=== PATIENT | male | born 1945 | race Caucasian/White ===

== ENCOUNTER 2022-09-07 03:25 | Emergency (ER) | payer MEDICARE, SELFPAY ==
--- NOTE | 2022-09-07 05:08 | PC.NURSE ---
Computers into downtime during patient's stay in ER. See paper charting for ER stay.
--- NOTE | 2022-09-07 05:18 | ED.MALEGU ---
HPI - Male Genitourinary General Stated complaint: Urinary retention Time Seen by Provider: 09/07/22 05:06 Source: patient Mode of arrival: ambulatory Limitations: no limitations History of Present Illness HPI Narrative: Patient is a 77-year-old male with a history of atrial fibrillation, chronic anticoagulation, hypertension, BPH, presenting to the emergency department for evaluation of difficulty with urination. Patient reports intermittent dribbling stream and has been unable to urinate completely over the past 12 hours. Patient states he has been drinking increased amount of water to see if that would increase his ability to urinate but now he reports discomfort and urge to pee. Patient reports suprapubic discomfort without significant distention. He denies flank pain. No fever, chills, nausea or vomiting. No history of this occurring in the past. Denies recent medication changes or anesthesia. Denies dysuria or hematuria. Review of Systems Review of Systems: CONSTITUTIONAL: Denies fever CARDIOVASCULAR: Denies chest pain RESPIRATORY: Denies cough or dyspnea. GASTROINTESTINAL: Denies abdominal pain, reports urinary retention, reports suprapubic pain SKIN: Denies rash MUSCULOSKELETAL: Denies back pain NEUROLOGIC: Denies headache [facility] Past Medical History Medical History (Updated 09/07/22 @ 05:23 by Lila Tapia MD) Atrial fibrillation Benign prostatic hyperplasia Social History Social History (Updated 09/07/22 @ 05:21 by Lila Tapia MD) Smoking status: Never smoker Alcohol intake: never Substance use: never Gender identity (if verbalized by the patient): Male Exam Narrative: GENERAL: Awake, alert, conversant HEAD: Normocephalic, atraumatic. EYES: PERRLA and EOMI. ENT: Nares clear, no rhinorrhea or epistaxis. Mucous membranes moist. NECK: Supple. CHEST: No respiratory distress, breathing even and non labored HEART: Regular rate, sinus rhythm ABDOMEN:Non distended, mild suprapubic tenderness, no rebound, rigidity or guarding EXTREMITIES: Normal range of motion. No edema. SKIN: Warm, dry, no rash. NEURO:No focal deficits. Alert and oriented x3 MDM - Male Genitourinary MDM Narrative Medical decision making narrative: Patient presenting for evaluation of urinary retention. At the time of assessment, ABCs are intact and vital signs are stable. Patient with only mild suprapubic tenderness without peritoneal signs. IV access obtained and labs are drawn. A bladder scan was obtained and patient had greater than 500 mL present in his bladder. A Valentin catheter was placed for urinary retention. Patient without leukocytosis or acute kidney injury. Urinalysis is not consistent with UTI. Patient sounds if he has a history of BPH and now exacerbation. Plan for chronic indwelling Valentin catheter and urology follow-up for voiding trial. Patient felt improved at the time of reassessment, was discharged home in stable condition. Discharge paperwork was provided to patient during EMR downtime. Differential Diagnosis Differential diagnosis: Likely urinary tract infection, prostatitis and acute retention of urine Lab Data 09/07/22 04:02 09/07/22 04:02 Labs: Lab Results 09/07/22 09/07/22 09/07/22 Range/Units 04:02 04:02 04:02 WBC Pending RBC Pending Hgb Pending Hct Pending MCV Pending MCH Pending MCHC Pending RDW Pending Plt Count Pending MPV Pending Immature Gran % (Auto) Pending Neut % (Auto) Pending Lymph % (Auto) Pending [place] % (Auto) Pending Eos % (Auto) Pending Baso % (Auto) Pending Lymph # (Auto) Pending [place] # (Auto) Pending Eos # (Auto) Pending Baso # (Auto) Pending Abs Immat Gran (auto) Pending Absolute Neuts (auto) Pending Absolute Nucleated RBC Pending Nucleated RBC % Pending Sodium 131 L (137-145) mmol/L Potassium 3.6 (3.4-
[2022-09-07 05:21] LABS: Anion Gap 9 mmol/L (8-16); Blood Urea Nitrogen 21 mg/dL (9-20); Calcium 8.3 mg/dL (8.4-10.2); Carbon Dioxide 17 mmol/L (22-30); Chloride 105 mmol/L (98-107); Estimated Glomerular Filt Rate > 60; Glucose 112 mg/dL (65-110); Potassium 3.6 mmol/L (3.4-5.0); Sodium 131 mmol/L (137-145)
[2022-09-07 05:23] LABS: Basophils Absolute Auto 0.1 K/mm3 (0.0-0.1); Basophils Percent Auto 0.6 % (0.2-1.2); Eosinophils Absolute Auto 0.1 K/mm3 (0-0.3); Eosinophils Percent Auto 1.7 % (0-4.4); Hematocrit 44.2 % (42.0-52.0); Immature Granulocyte Absolute 0.03 K/mm3 (0.00-0.031); Immature Granulocyte Percent A 0.4 % (0-0.5); Lymphocytes Absolute Auto 1.09 K/mm3 (0.9-3.2); Mean Corpuscular HGB Conc 33.9 g/dl (32-36); Mean Corpuscular Hemoglobin 30.4 pg (26-34); Mean Corpuscular Volume 89.5 fl (80-100); Mean Platelet Volume 10.7 fl (7.4-10.4); Monocytes Absolute Auto 0.9 K/mm3 (0.1-0.6); Monocytes Percent Auto 11.2 % (2.6-8.5); Neutrophils Absolute Auto 5.6 K/mm3 (1.3-6.7); Neutrophils Percent Auto 72.1 % (45.5-73.1); Platelet Count Result 147 k/mm3 (150-375); Red Blood Count 4.94 M/mm3 (4.6-6.20); Red Cell Distribution Width 12.5 % (11.5-14.5); White Blood Count 7.8 K/mm3 (4.5-10.0)
[2022-09-07 05:26] LABS: Add Urine Microscopic? YES; Appearance Urine Clear (Clear); Bilirubin Urine Negative (Negative); Blood Urine Trace-intact (Negative); Color Urine Yellow (Yellow); Glucose Urine UA Negative (Negative); Ketones Urine Negative (Negative); Leukocyte Esterase Ur Negative LEU/UL (Negative); Nitrate Urine Negative (Negative); Protein Urine Negative (Negative); Urobilinogen Urine 0.2 mg/dL (<2.0)
== END 2022-09-07 05:08 | disposition home or self-care (01) ==
PROVIDERS: Emergency Provider Emergency Medicine; PCP Family Medicine
DX: R33.9 Retention of urine, unspecified (principal); I48.91 Unspecified atrial fibrillation; Z79.01 Long term (current) use of anticoagulants
CPT/HCPCS: 36415; 80048; 81001; 85025; 99283; J7030

== ENCOUNTER 2022-09-08 03:53 | Emergency (ER) | payer MEDICARE, SELFPAY ==
[2022-09-08 04:00] VITALS: BP 156/90; PULSE 102; RESP 18; TEMP 36.6; O2SAT 99
--- NOTE | 2022-09-08 05:05 | ED.GENADULT ---
HPI - General Adult General Chief complaint: Urogenital-Male Stated complaint: bleeding around urinary cath Time Seen by Provider: 09/08/22 04:13 History of Present Illness HPI narrative: This is a 77-year-old male presenting to ED after bleeding around the urinary catheter site. Patient has had urinary retention which was treated in our emergency department last night. A Valentin was placed. At that time urinalysis was obtained which was negative for infection. The patient went home has been having some discomfort with the Valentin which is to be expected. Additionally he had some mild bleeding from his urethral meatus. Patient is on anticoagulation for AFib. Patient denies any other complaints. Related Data Allergies Allergy/AdvReac Type Severity Reaction Status Date / Time No Known Allergies Allergy Verified 09/08/22 03:58 Review of Systems Review of Systems: CONSTITUTIONAL: Denies night sweats. EYES: No eye pain ENT: Denies rhinorrhea CARDIOVASCULAR: Denies palpitations RESPIRATORY: Denies hemoptysis GASTROINTESTINAL: Denies hematemesis GENITOURINARY: Denies hematuria. SKIN: Denies rash MUSCULOSKELETAL: Denies myalgia. NEUROLOGIC: Denies weakness. PSYCHIATRIC: Denies delusions [facility] Past Medical History Medical History Atrial fibrillation Benign prostatic hyperplasia Social History Social History Smoking status: Never smoker Alcohol intake: never Substance use: never Gender identity (if verbalized by the patient): Male Exam Narrative: APPEARANCE: No apparent distress. Head: atraumatic. EYES: EOMI, NOSE: Atraumatic NECK: Trachea midline RESPIRATORY: No increased rate of breathing CARDIOVASCULAR: RRR, ABDOMINAL: Non-distended MUSCULOSKELETAl: No obvious deformities GENITAL: mild brownish blood around the urethral meatus. NEURO: Alert. Moving 4/4 extremities SKIN:: Warm, dry. Normal color PSYCHIATRIC: Normal affect Course Vital Signs Vital signs: Vital Signs Temperature 98 F 09/08/22 04:00 Pulse Rate 102 H 09/08/22 04:00 Respiratory Rate 18 09/08/22 04:00 Blood Pressure 156/90 H 09/08/22 04:00 Pulse Oximetry 99 09/08/22 04:00 Oxygen Delivery Room Air 09/08/22 04:00 Temperature 98 F 09/08/22 04:00 Pulse Rate 102 H 09/08/22 04:00 Respiratory Rate 18 09/08/22 04:00 Blood Pressure 156/90 H 09/08/22 04:00 Pulse Oximetry 99 09/08/22 04:00 Oxygen Delivery Room Air 09/08/22 04:00 Medical Decision Making MDM Narrative Medical decision making narrative: This is a 69-year-old male presenting to ED with concern about his Valentin catheter. He had some red blood around the urethral meatus. This is likely just some mild bleeding from when the tube was inserted. It was probably worsened by his anticoagulation. there is no active bleeding at this time. I reviewed the patient's chart from yesterday and his urine was immaculate and his lab work was all within normal limits. Patient was instructed to take Tylenol for the discomfort and follow up with his appointment with the urologist. Vital Signs Vital Signs: Vital Signs Temperature 98 F 09/08/22 04:00 Pulse Rate 102 H 09/08/22 04:00 Respiratory Rate 18 09/08/22 04:00 Blood Pressure 156/90 H 09/08/22 04:00 Pulse Oximetry 99 09/08/22 04:00 Oxygen Delivery Room Air 09/08/22 04:00 Temperature 98 F 09/08/22 04:00 Pulse Rate 102 H 09/08/22 04:00 Respiratory Rate 18 09/08/22 04:00 Blood Pressure 156/90 H 09/08/22 04:00 Pulse Oximetry 99 09/08/22 04:00 Oxygen Delivery Room Air 09/08/22 04:00 Discharge Plan Discharge Clinical Impression: Acute urinary retention Patient Disposition: Home, Self-Care Condition: Stable Instructions: Antibiotic Form, Valentin Catheter Placement and Care (ED) Additional Instructions: Please take Tylenol for
== END 2022-09-08 05:17 | disposition home or self-care (01) ==
PROVIDERS: Emergency Provider Emergency Medicine; PCP Family Medicine
DX: R33.9 Retention of urine, unspecified (principal); I48.91 Unspecified atrial fibrillation; Z79.01 Long term (current) use of anticoagulants; N40.0 Benign prostatic hyperplasia without lower urinary tract symptoms
CPT/HCPCS: 99281